=== PATIENT | male | born 1945 | race Caucasian/White ===

== ENCOUNTER 2017-12-18 09:42 | Day surgery (SDC) | payer OTHER ==
[~2017-12-18] VITALS: Ht 175.3 cm; Wt 86.4 kg
[2017-12-18 09:58] VITALS: BP 213/101; PULSE 84; RESP 20; TEMP 98.1; O2SAT 92
[2017-12-18] MEDS ORDERED: SODIUM CHLORIDE 0.9% 1000 ML IV SCH (10:15)
[2017-12-18] MEDS ORDERED: FEXO15TA PO (10:28)
[2017-12-18] MEDS ORDERED: ASPI81CH6 CHEW (10:29)
[2017-12-18] MEDS ORDERED: DYAZ37.5 PO (10:29)
[2017-12-18] MEDS ORDERED: FLUT50SP EACH NARE (10:30)
[2017-12-18] MEDS ORDERED: LOVA20TA PO (10:32)
[2017-12-18] MEDS ORDERED: IBUP200C PO (10:32)
[2017-12-18] MEDS ORDERED: MELA5 PO (10:33)
[2017-12-18] MEDS ORDERED: TAMS0.4C4 PO (10:34)
[2017-12-18 11:04] LABS: INTERNATIONAL NORMALIZED RATIO 1.1 RATIO; PROTHROMBIN TIME - PATIENT 11.2 SEC (9.8-11.6)
[2017-12-18] MEDS ORDERED: MIDAZOLAM HCL 2 MG/2 ML VIAL ONE (11:56)
[2017-12-18] MEDS ORDERED: ALCOHOL, DEHYDRATED (ABSOLUTE) 5 ML VIAL ONE (12:02)
[2017-12-18] MEDS ORDERED: BUPIVACAINE HCL PF 0.75% 30 ML VIAL ONE (12:03)
[2017-12-18] MEDS ORDERED: LIDOCAINE 1%/EPINEPHrine 1:100,000 SOLN 20 ML VIAL ONE (12:03)
[2017-12-18] MEDS ORDERED: LABETALOL HCL 100 MG/20 ML VIAL ONE (12:35)
[2017-12-18 12:50] VITALS: BP 162/90; PULSE 62; RESP 16; TEMP 98.3; O2SAT 92
[2017-12-18 13:05] VITALS: BP 163/86; PULSE 60; RESP 18; O2SAT 95
[2017-12-18 13:35] VITALS: BP 155/96; PULSE 62; RESP 18; O2SAT 93
--- NOTE | 2017-12-18 13:45 | PD.RAD ---
Post CT Procedure Prog Note Pre Procedure Diagnosis: (1) Chronic coccygeal pain Post Procedure Diagnosis: (1) Chronic coccygeal pain Procedure Date: December 18, 2017 Supervising Radiologist: Caleb Quintana Anesthesia: Local, Analgesia, Conscious Sedation Plan of Activity Patient to Unit: [facility] Patient Condition: Good See PACS Report for procedural detail/treatment Spinal Procedure Neurolysis (Impar sacrococcygeal ganglion block) Other (Sacrococcygeal junction) Findings: Reproduction and at least temporary reproduction of pts baseline symptoms with Ganglion Impar Neurolysis Caleb Quintana MD December 18, 2017 13:45
--- NOTE | 2017-12-18 16:21 | RADRPT ---
EXAM DATE: 12/18/2017 2:10 PM EDT AGE/SEX: 72 years / Male INDICATIONS: Sacrococcygeal joint pain. CLINICAL DATA: This is the patient's initial encounter. Patient reports that signs and symptoms have been present for 1 day and indicates a pain score of 3/10. MEDICAL/SURGICAL HISTORY: Hypertension. Osteoarthritis. Hyperlipidemia, BPH. None. RADIATION DOSE: CTDI (mGy) COMPARISON: No prior [facility] exams available for comparison. PROCEDURE : The risks, benefits and alternatives to the procedure were explained and verbal and written consent w as obtained. Using automated exposure control and adjustment of the mA and/or kV according to patien t size, radiation dose was kept as low as reasonably achievable to obtain optimal diagnostic quality images. The site was prepped in sterile fashion. Full sterile technique was used, including cap, ma sk, sterile gloves and gown and a large sterile sheet. Hand hygiene and 2% chlorhexidine and/or beta dine/alcohol prep was utilized per protocol for cutaneous antisepsis. The skin and subcutaneous tiss ues were infiltrated with local anesthetic solution. DICOM format image data is available electronic ally for review and comparison. FINDINGS: Mild left lateral approach, a 22-gauge, 7 inch spinal needle was advanced through the left buttocks a nd into the presacral space at the sacrococcygeal junction. Position was confirmed with CT. Contrast injection showed normal spread through the sacrococcygeal ganglion.. This did reproduce the patient's baseline symptoms. However, following injection of bupivacaine and lidocaine mixture, patient report ed complete resolution of previous coccygeal pain. Through the same needle, a total of approximately 5 cc of sterile alcohol and 2 cc of bupivacaine wer e then injected into the impar ganglion and the needle was flushed with approximately 1 cc of lidocai ne. Again, this did reproduce some of the patient's baseline discomfort but this quickly abated. Imme diate post procedure, the patient described complete resolution of previous symptoms. Approximately 1 hour post procedure, patient reported a 3 out of 10 discomfort level in the coccygeal region with a preprocedural pain level of approximately 6 out of 10. CONCLUSION: 1. Uncomplicated CT-guided impar ganglion sacrococcygeal neurolysis as above. Electronically signed by: Caleb Quintana MD 12/18/2017 4:20 PM EDT
== END 2017-12-18 14:30 | disposition home or self-care (01) ==
LOC: HRAD 09:42 → HRIP 09:45 → HRAD 14:30
PROVIDERS: ATTEND Internal Medicine Gastroenterology
DX: M53.3 Sacrococcygeal disorders, not elsewhere classified (principal); Z79.899 Other long term (current) drug therapy; Z79.82 Long term (current) use of aspirin
CPT/HCPCS: 20612; 77013; 85610; 85730; 99152; J2250; J3010; J7030